=== PATIENT | male | born 1975 | race Caucasian/White ===

== ENCOUNTER → 2022-02-07 | Outpatient (CLI) | payer OTHER ==
--- NOTE | 2022-02-07 10:05 | US ---
EXAMINATION TYPE: US abdomen complete DATE OF EXAM: 02/07/2022 COMPARISON: NONE CLINICAL HISTORY: 46-year-old male R10.9 ABD PAIN. Left sided abdominal pain x a couple years intermi ttently. TECHNIQUE: Multiple sonographic images of the abdomen are obtained. FINDINGS: EXAM MEASUREMENTS: Liver Length: 15.3 cm Gallbladder Wall: 0.17 cm CBD: 0.63 cm Spleen: 10.2 cm Right Kidney: 10.2 x 6.4 x 5.5 cm Left Kidney: 11.3 x 5.6 x 6.0 cm CONFERENCE MANAGER NOTES: Limited due to overlying bowel gas. Pancreas: Most of the pancreas is visualized and shows no gross abnormality. Liver: Overall homogeneous appearance without focal lesion. Gallbladder: Fold seen. Appears anechoic. No abnormal distention, wall thickening, or shadowing calcu li. Evidence for sonographic Carvalho's sign: No CBD: Borderline caliber. Spleen: Limited due to gas. Estimated normal size. Right Kidney: No hydronephrosis or masses seen Left Kidney: No hydronephrosis or masses seen Upper IVC: Appears wnl Abd Aorta: Portions seen appear wnl. Iliacs were obscured. IMPRESSION: 1. No gallstones. 2. Borderline caliber to the bile duct at 6 mm. This may be chronic for the patient. Correlate with a lkaline phosphatase and bilirubin levels to exclude early biliary obstruction.
== END | disposition home or self-care (01) ==
LOC: RADUSWWP 06:49
PROVIDERS: ATTEND Family Medicine
DX: R10.9 Unspecified abdominal pain (principal)
CPT/HCPCS: 76700

== ENCOUNTER → 2022-05-12 | Outpatient (CLI) | payer MEDICARE, OTHER ==
--- NOTE | 2022-05-12 15:28 | CT ---
EXAMINATION TYPE: CT lumbar spine wo con DATE OF EXAM: 05/12/2022 3:17 PM COMPARISON: HISTORY: chronic back pain, observation for pain stimulator lead placement CT DLP: 932 mGycm Automated exposure control for dose reduction was used. Unenhanced CT of the lumbar spine was performed. Bone and soft tissue window settings are submitted as well as coronal and sagittal reconstructions. Findings: There are postsurgical changes of laminectomy and posterior metallic fusion with intradural disc fusi on device at the L5-S1 level. There is a slight anterolisthesis of L5 The lumbar vertebral segments from L1 through L5 are normal in height and alignment and there is no f racture subluxation. The disc spaces are well-maintained from L1 through L5. There is no spinal stenosis. No large disc herniations are seen. The neuroforamina appear patent. The visualized sacrum and SI joints are normal.The facet joints are intact. The paraspinal soft tissues are unremarkable. IMPRESSION: 1. Postsurgical changes at the L5-S1 level described above. 2. Slight anterolisthesis of L5 and S1. 3. No other significant abnormality seen.
== END | disposition home or self-care (01) ==
LOC: RADCTMAIN 14:40
PROVIDERS: ATTEND Psychiatry & Neurology Neurology
DX: M51.36 Other intervertebral disc degeneration, lumbar region (principal); M43.17 Spondylolisthesis, lumbosacral region; M51.9 Unspecified thoracic, thoracolumbar and lumbosacral intervertebral disc disorder; G89.29 Other chronic pain
CPT/HCPCS: 72131

== ENCOUNTER → 2023-02-21 | Outpatient (CLI) | payer MEDICARE ==
[2023-02-21 16:12] LABS: Basophils # (A) 0.1 k/uL (0-0.2); Basophils % (A) 1 %; Eosinophils # (A) 0.1 k/uL (0-0.7); Eosinophils % (A) 1 %; HCT 43.9 % (39.0-53.0); HGB 14.9 gm/dL (13.0-17.5); Lymphocytes # (A) 1.7 k/uL (1.0-4.8); Lymphocytes % (A) 27 %; MCH 31.4 pg (25.0-35.0); MCHC 33.9 g/dL (31.0-37.0); MCV 92.7 fL (80.0-100.0); Mean Platelet Volume 7.7; Monocytes # (A) 0.5 k/uL (0-1.0); Monocytes % (A) 8 %; Neutrophils # (A) 3.8 k/uL (1.3-7.7); Neutrophils % (A) 61 %; Platelet Count 273 k/uL (150-450); RBC 4.74 m/uL (4.30-5.90); RDW 12.5 % (11.5-15.5); WBC 6.3 k/uL (3.8-10.6)
[2023-02-21 16:16] LABS: Total Eosinophil Count 76 #EOS/uL (150-300)
[2023-02-21 20:15] LABS: Alternaria alternata IgE <0.10 kU/L; Aspergillus fumagatus IgE <0.10 kU/L; Birch IgE <0.10 kU/L; Cat Epith & Dander IgE <0.10 kU/L; Cladosporian herbarum IgE <0.10 kU/L; Cockroach IgE <0.10 kU/L; Dermato. farinae IgE 5.94 kU/L; Dog Dander IgE <0.10 kU/L; Elm IgE <0.10 kU/L; Maple (Box Elder) IgE <0.10 kU/L; Oak IgE <0.10 kU/L; Ragweed,Common IgE <0.10 kU/L; Red Top (Bentgrass) IgE 0.55 kU/L
== END | disposition home or self-care (01) ==
LOC: LABWHC1 14:54
PROVIDERS: ATTEND Internal Medicine
DX: R05.3 Chronic cough (principal)
CPT/HCPCS: 36415; 82785; 85008; 85025; 86003

== ENCOUNTER → 2023-02-26 | Outpatient (CLI) | payer MEDICARE ==
[2023-02-26 12:18] LABS: Partial Thromboplastin Time 24.3 sec (22.0-30.0); Prothrombin Time 10.7 sec (10.0-12.5)
[2023-02-26 14:27] LABS: Appearance,Urine Clear (Clear); Bilirubin,Urine Negative (Negative); Blood,Urine Negative (Negative); Color,Urine Yellow; Glucose,Urine (UA) Negative (Negative); Ketones,Urine Negative (Negative); Leukocyte Esterase,Urine Negative (Negative); Nitrite,Urine Negative (Negative); PH, Urine 5.5 (5.0-8.0); Protein,Urine Negative (Negative); Specific Gravity,Urine 1.027 (1.001-1.035); Urobilinogen,Urine <2.0 mg/dL (<2.0)
[2023-02-26 15:54] LABS: Basophils # (A) 0.08 X 10*3/uL (0.00-0.10); Basophils % (A) 1.1 %; Eosinophils # (A) 0.03 X 10*3/uL (0.04-0.35); Eosinophils % (A) 0.4 %; HCT 45.2 % (39.6-50.0); HGB 15.2 g/dL (13.0-17.0); Lymphocytes # (A) 1.32 X 10*3/uL (0.90-5.00); Lymphocytes % (A) 17.6 %; MCH 30.5 pg (27.0-32.0); MCHC 33.6 g/dL (32.0-37.0); MCV 90.6 FL (80.0-97.0); Mean Platelet Volume 10.4 FL (9.5-12.2); Monocytes # (A) 0.61 X 10*3/uL (0.20-1.00); Monocytes % (A) 8.2 %; NRBC Per 100 WBC 0 X 10*3/uL (0.00-0.01); Neutrophils # (A) 5.41 X 10*3/uL (1.80-7.70); Neutrophils % (A) 72.3 %; Platelet Count 297 X 10*3/uL (140-440); RBC 4.99 X 10*6/uL (4.40-5.60); RDW 12.6 % (11.5-14.5); WBC 7.48 X 10*3/uL (4.50-10.00)
[2023-02-26 16:59] LABS: ALT 221 U/L (10-49); AST 57 U/L (14-35); Albumin 4.7 g/dL (3.8-4.9); Albumin/Globulin Ratio 1.96 Ratio (1.60-3.17); Alkaline Phosphatase 77 U/L (41-126); Blood Urea Nitrogen 12.7 mg/dL (9.0-27.0); Calcium 9.5 mg/dL (8.7-10.3); Carbon Dioxide 24.4 mmol/L (21.6-31.8); Chloride 104 mmol/L (96-109); Globulin 2.4 g/dL (1.6-3.3); Glucose 97 mg/dL (70-110); Potassium 4.3 mmol/L (3.5-5.5); Sodium 139 mmol/L (135-145); Total Bilirubin 0.3 mg/dL (0.3-1.2); Total Protein 7.1 g/dL (6.2-8.2)
== END | disposition home or self-care (01) ==
LOC: LABWHC1 10:57
PROVIDERS: ATTEND Neurological Surgery
DX: M96.1 Postlaminectomy syndrome, not elsewhere classified (principal)
CPT/HCPCS: 36415; 80053; 81003; 83036; 85025; 85610; 85730

== ENCOUNTER → 2023-03-23 | Outpatient (CLI) | payer MEDICARE ==
--- NOTE | 2023-03-23 08:30 | US ---
EXAMINATION TYPE: US abdomen complete DATE OF EXAM: 03/23/2023 COMPARISON: 02/07/2022 CLINICAL INDICATION: Male, 48 years old with history of R10.32 LLR PAIN 79.89 ABNORMAL LAB RESULTS; P atient having left sided pain and elevated LFTs. No other symptoms. TECHNIQUE: Multiple sonographic images of the abdomen are obtained. FINDINGS: EXAM MEASUREMENTS: Liver Length: 12.4 cm Gallbladder Wall: 0.2 cm CBD: unable to visualize Spleen: 9.4 cm Right Kidney: 8.7 x 5.3 x 5.4 cm Left Kidney: 10.4 x 5.4 x 4.8 cm FIRE SPRINKLER SERVICE TECHNICIAN NOTES: Limited due to overlying gas and patient body habitus Pancreas: Obscured by bowel gas Liver: portions visualized WNL, posterior aspect obscured by gas Gallbladder: wnl as best visualized. No stones seen Evidence for sonographic Carvalho's sign: No CBD: Obscured by overlying bowel gas Spleen: wnl Right Kidney: No hydronephrosis or masses seen as best visualized Left Kidney: No hydronephrosis or masses seen as best visualized Upper IVC: wnl Abd Aorta: wnl IMPRESSION: No discrete abnormality seen.
== END | disposition home or self-care (01) ==
LOC: RADUSWWP 07:32
PROVIDERS: ATTEND Family Medicine
DX: R10.32 Left lower quadrant pain (principal); R79.89 Other specified abnormal findings of blood chemistry
CPT/HCPCS: 76700

== ENCOUNTER → 2023-03-28 | Outpatient (CLI) | payer MEDICARE ==
--- NOTE | 2023-03-28 14:31 | CT ---
EXAMINATION TYPE: CT chest w con DATE OF EXAM: 03/28/2023 COMPARISON: None available. HISTORY: Chronic cough. CT DLP: 678 mGycm Automated exposure control for dose reduction was used. TECHNIQUE: CT scan of the chest is performed with IV Contrast, patient injected with 100ml mL of Isovue 300. NC P Images are created on CT scanner and reviewed. 3D reconstructed images are created on an [employer] workstation and reviewed. FINDINGS: Mediastinum and Lindy: There is no axillary, mediastinal or hilar lymphadenopathy. Pleural and Pericardial spaces: There are no pleural or pericardial effusions. Upper Abdomen: The visualized upper abdomen is unremarkable. Cardiovascular: The thoracic aorta is normal in size. Lung Parenchyma and Airways: The lungs are clear. Bones: No fracture or aggressive osseous lesion. Stimulator leads are seen within the mid thoracic sp inal canal posteriorly. IMPRESSION: 1. No acute abnormality in the chest.
== END | disposition home or self-care (01) ==
LOC: RADCTMAIN 12:38
PROVIDERS: ATTEND Internal Medicine
DX: R05.3 Chronic cough (principal)
CPT/HCPCS: 71260; Q9967

== ENCOUNTER 2023-04-18 12:15 | Day surgery (SDC) | payer MEDICARE ==
[~2023-04-18 12:15] MED LIST: LACTATED RINGERS 1,000 ML IV SCH; LIDOCAINE 1% (10MG/ML) FOR IV START INTRADERMA PRN; ONDANSETRON 4 MG/2 ML VIAL IVP PRN
[2023-04-18] MEDS: LACTATED RINGERS 1,000 ML IV SCH (12:32)
[2023-04-18 13:22] VITALS: RESP 16; TEMP 86
[2023-04-18] MEDS ORDERED: MIDAZOLAM 2 MG/2 ML VIAL ONE (13:26)
[2023-04-18] MEDS ORDERED: LIDOCAINE 1% INJ 10MG/ML (20 ML MDV) ONE (13:26)
[2023-04-18] MEDS ORDERED: PROPOFOL 10 MG/ML 20 ML VIAL IV ONE (13:26)
[2023-04-18] MEDS ORDERED: fentaNYL (PF) 50 MCG/ML 2 ML AMP ONE (13:26)
[2023-04-18] MEDS: LIDOCAINE 2% INJ 20 MG/ML INTRATRACH ONE (13:35)
[2023-04-18 14:30] VITALS: BP 134/85; PULSE 84
[2023-04-18 18:08] LABS: Appearance,BF Cloudy (Clear); RBC, Body Fluid 200 /UL (0-2000)
--- NOTE | 2023-04-18 19:14 | OP ---
OPERATIVE REPORT DATE OF SERVICE : PROCEDURE PERFORMED: Bronchoscopy, and random bronchoalveolar lavage. PREOPERATIVE DIAGNOSIS: Chronic cough. 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 ANESTHESIA USED: IV conscious sedation. PROCEDURE: The patient was brought into the bronchoscopy suite, he was already prepared as per bronchoscopy protocol. The patient was placed in a supine position, O2 was applied via Ventimask and a bite block was placed. We monitored his O2 saturation continuously, blood pressure was intermittently monitored, cardiac rhythm was continuously monitored, and pulse oximetry was continuously monitored. After adequate IV conscious sedation, the bronchoscope was advanced through the bite block down to the area of the vocal cords. There was evidence of prominent tissue over the left vocal cord, however, there was no specific tumor, the tissue was noted to be quite prominent, and the left vocal cord was noted to be a bit asymmetrical compared to the right vocal cord. Lidocaine was applied over the vocal cords, and the bronchoscope was advanced further down to the trachea. Thorough examination was done of trachea, right upper lobe, jc, right middle lobe, right lower lobe, left upper lobe, lingula, and left lower lobe. There was no evidence of any endobronchial pathology. Nonetheless, there was some minimal secretions in the right middle lobe and right lower lobe as well as right upper lobe. Secretions were clear, bronchoalveolar lavage was done of the right upper lobe right middle lobe right lower lobe, fluid was sent for different diagnostic studies. The procedure was well tolerated, no complications, pictures of the area of the vocal cords were taken, and the plan is to eventually refer the patient for ENT for further evaluation and direct laryngoscopy to further evaluate the abnormality and the asymmetry noted over the left vocal cord. MMODL / IJN: [id number] /
[2023-04-19 11:30] LABS: Nucleated Cells, Body Fluid 860 /UL
== END 2023-04-18 14:18 | disposition home or self-care (01) ==
LOC: ORWHC2ENDO 12:15
PROVIDERS: ATTEND Internal Medicine
DX: J38.01 Paralysis of vocal cords and larynx, unilateral (principal); E78.5 Hyperlipidemia, unspecified; J44.9 Chronic obstructive pulmonary disease, unspecified; K21.9 Gastro-esophageal reflux disease without esophagitis; I10 Essential (primary) hypertension; F41.9 Anxiety disorder, unspecified; F32.A Depression, unspecified; Z79.51 Long term (current) use of inhaled steroids; Z87.891 Personal history of nicotine dependence; Z79.899 Other long term (current) drug therapy
CPT/HCPCS: 87798 ×3; 87496; 87498; 87529; 89050; 87502; 87634; 87070; 87205; 87116; 87102; 87206; 87635; 31624; J2001 ×2; J2250; J3010; J2704

== ENCOUNTER 2023-06-20 10:01 | Day surgery (SDC) | payer MEDICARE ==
[2023-06-15 14:45] VITALS: BMI 31.7
[~2023-06-20 10:01] MED LIST changes: -LACTATED RINGERS 1,000 ML IV SCH; -LIDOCAINE 1% (10MG/ML) FOR IV START INTRADERMA PRN
[2023-06-20] MEDS: LACTATED RINGERS 1,000 ML IV SCH (10:11)
[2023-06-20] MEDS: DEXAMETHASONE SOD PHOSPHATE 4 MG/ML 1 ML VIAL IV ONE (10:49)
[2023-06-20] MEDS: ONDANSETRON 4 MG/2 ML VIAL IVP ONE (10:49)
[2023-06-20] MEDS: FAMOTIDINE 20 MG/2 ML VIAL IV PRN (10:50)
[2023-06-20] MEDS ORDERED: LIDOCAINE 1% INJ 10MG/ML (20 ML MDV) ONE (11:16)
[2023-06-20] MEDS ORDERED: MIDAZOLAM 2 MG/2 ML VIAL ONE (11:16)
[2023-06-20] MEDS ORDERED: PROPOFOL 10 MG/ML 20 ML VIAL IV ONE (11:16)
[2023-06-20] MEDS ORDERED: SUCCINYLCHOLINE CHLORIDE 200 MG/10 ML VIAL IV ONE (11:16)
[2023-06-20] MEDS ORDERED: LIDOCAINE 4% LTA KIT (4 ML) TOPICAL ONE (11:16)
[2023-06-20] MEDS ORDERED: fentaNYL (PF) 50 MCG/ML 2 ML AMP ONE (11:16)
--- NOTE | 2023-06-20 11:52 | P.OP ---
Date of Procedure: 06/20/23 Preoperative Diagnosis: hoarseness,left vocalcord lesion Postoperative Diagnosis: same Procedure(s) Performed: direct microlaryngoscopywith biopsy left posterior vocal cord Anesthesia: JADENA Surgeon: Ameya Pena Estimated Blood Loss (ml): 1 Pathology: other (left posterior vocal cord) Condition: stable Disposition: PACU Indications for Procedure: this is a 48-year-old white male who had recent bronchoscopy for chronic cough and was noted to have a left vocal cord abnormality was sent to the office for evaluation. He had a diffuse of the left vocal cord and therefore recommended direct laryngoscopy for further evaluation. Operative Findings: diffuse mild edema of the left true vocal cord. This was more prominent posteriorly and therefore biopsy was taken of the posterior vocal cord on the superior aspect. This was smooth and had normal colored mucosa Description of Procedure: the patient was brought in the operative suite and place a supine position. Patient underwent induction of general anesthesia with oral endotracheal intubation with difficulty with a #6 endotracheal tube. A the tooth guard was placed and direct laryngoscopy was performed with systematic evaluation of the base of tongue vallecula both piriform sinuses post cricoid area and endolarynx. With the larynx in good visualization laryngoscope was placed in suspension and Zeiss microscope brought in position for evaluation. The left true vocal cord had findings as above and due to the fact that this did have some abnormal appearance it was elected to take a small sample biopsy on the superior aspect of the left true vocal cord posteriorly in order to avoid the opposing surface of the mucosa quite effect vocalization. A small strip of mucosa was taken with microcup forceps on the posterior superior aspect of the true vocal cord leaving the lamina propria intact. Hemostasis was gained spontaneously. The laryngoscope and tooth guard were removed. The patient was then allowed to emerge from general anesthesia having tolerated procedure well was extubated in the operating suite and transferred to postop recovery area in satisfactory condition.
[2023-06-20] MEDS: HYDROmorphone 0.5 MG/0.5 ML SYRINGE IVP PRN (12:06)
[2023-06-20 12:10] VITALS: TEMP 97.7
[2023-06-20 12:55] VITALS: RESP 16
[2023-06-20 13:41] VITALS: BP 118/67; PULSE 67
== END 2023-06-20 13:32 | disposition home or self-care (01) ==
LOC: OR 10:01
PROVIDERS: ATTEND Otolaryngology
DX: J38.3 Other diseases of vocal cords (principal); J38.7 Other diseases of larynx; E78.5 Hyperlipidemia, unspecified; Z79.899 Other long term (current) drug therapy
CPT/HCPCS: 31541; 88305; J2250; J0330; J1100; J2405; J2001; J3010; J3490; J2704; J1170

== ENCOUNTER → 2023-12-04 | Outpatient (CLI) | payer MEDICARE ==
--- NOTE | 2023-12-04 19:03 | CT ---
EXAMINATION TYPE: CT abdomen pelvis wo/w con CT DLP: 1716.6 mGycm, Automated exposure control for dose reduction was used. DATE OF EXAM: 12/04/2023 5:30 PM COMPARISON: None. CLINICAL INDICATION: Male, 48 years old with history of R10.9 UNSPECIFIED ABDOMINAL PAIN; LUQ abdomin al pain. TECHNIQUE: Axial CT abdomen pelvis wo/w con;Sagittal and coronal reformats were created on a [employer] workstation. Contrast used:100ml mL of Isovue 300 without and with IV Contrast, (none if empty) Oral contrast used: with Oral Contrast (none if empty) FINDINGS: LOWER CHEST: Unremarkable ABDOMEN LIVER: Unremarkable GALLBLADDER AND BILE DUCTS: Unremarkable. PANCREAS: Unremarkable. SPLEEN: Unremarkable. ADRENAL GLANDS: Unremarkable. KIDNEYS AND URETERS: No evidence of hydronephrosis or renal calculus. The ureters are unremarkable. PELVIS BLADDER: Unremarkable REPRODUCTIVE: Unremarkable. ABDOMEN & PELVIS STOMACH AND BOWEL: No evidence of bowel obstruction. The appendix is normal PERITONEUM/RETROPERITONEUM: No evidence of pneumoperitoneum or free fluid. VASCULATURE: No evidence of aortic aneurysm. MUSCULOSKELETAL: No acute osseous abnormalities, fixation hardware at L5-S1 appears intact. LYMPH NODES: No gross evidence for lymphadenopathy. SOFT TISSUE/ABDOMINAL WALL: Fat-containing inguinal hernias bilaterally. IMPRESSION: 1. No evidence for acute left upper quadrant process to explain the patient's pain. 2. No obstructive uropathy or renal calculus. No evidence for pancreatitis. [facility] Sherri Lovell, , 12/04/2023 7:01 PM
== END | disposition home or self-care (01) ==
LOC: RADCTMAIN 15:21
PROVIDERS: ATTEND Family Medicine
DX: R10.12 Left upper quadrant pain (principal)
CPT/HCPCS: 74178